=== PATIENT | female | born 1975 ===

== ENCOUNTER 2018-09-12 19:18 | Emergency (ER) | payer MEDICAID ==
[2018-09-12 19:26] VITALS: BP 127/82; PULSE 77; RESP 16; TEMP 98.1; O2SAT 99
--- NOTE | 2018-09-12 19:32 | C.PDOC ---
History Of Present Illness 42 y/o female presents to the ED complaining of right ankle pain, left shoulder pain, and left knee pain s/p fall. States she tripped and fell onto her left side. No head injury or LOC. Otherwise patient denies any numbness, tingling, focal weakness, or other injury. Time Seen by Provider: 09/12/18 19:28 Chief Complaint (Nursing): Lower Extremity Problem/Injury History Per: Patient History/Exam Limitations: no limitations Onset/Duration Of Symptoms: Hrs Current Symptoms Are (Timing): Still Present Past Medical History Reviewed: Historical Data, Nursing Documentation, Vital Signs Vital Signs: Last Vital Signs Temp 98.1 F 09/12/18 19:24 Pulse 77 09/12/18 19:24 Resp 16 09/12/18 19:24 BP 127/82 09/12/18 19:24 Pulse Ox 99 09/12/18 19:24 - Medical History PMH: No Chronic Diseases Family History: States: No Known Family Hx - Social History Hx Tobacco Use: No Hx Alcohol Use: No Hx Substance Use: No - Immunization History Hx Tetanus Toxoid Vaccination: No Hx Influenza Vaccination: No Hx Pneumococcal Vaccination: No Review Of Systems Constitutional: Negative for: Other (head injury) Eyes: Negative for: Vision Change Musculoskeletal: Positive for: Shoulder Pain (left), Leg Pain (left knee), Foot Pain (right ankle) Skin: Negative for: Rash, Bruising Neurological: Negative for: Weakness, Numbness, Incoordination Physical Exam - Physical Exam Appears: Non-toxic, No Acute Distress Skin: Normal Color, Warm, Dry Head: Atraumatic, Normacephalic Eye(s): bilateral: Normal Inspection, PERRL, EOMI Oral Mucosa: Moist Neck: Normal ROM, Supple Extremity: Normal ROM (with full ROM of the left lower extremity, left shoulder, and right lower extremity), Tenderness (Right ankle with mild tenderness to the medial and lateral malleolus; right hip and knee non-tender; Left shoulder is minimally tender to anterior aspect; no tenderness to left knee), No Deformity, Swelling (to the right ankle), Other (abrasion to the left knee, no active bleeding) Pulses: Left Dorsalis Pedis: Normal, Right Dorsalis Pedis: Normal Neurological/Psych: Oriented x3, Normal Speech ED Course And Treatment O2 Sat by Pulse Oximetry: 99 (RA) Pulse Ox Interpretation: Normal - Other Rad Right ankle x-ray X-Ray: Read By Radiologist Interpretation: Name:KARY SMITH Exam Date:Sep 12, 2018 7:57:32 PM EST. Modality Type:CR\SD\MD. Description:CR - ANKLE 3 VIEWS. Gender:F Laterality:Right. :75 Referring Physician:Fadumo Dinero). EXAM: CR right Ankle, 3 View. CLINICAL HISTORY: Fall. COMPARISON: None provided. FINDINGS: BONES: No fracture. JOINTS: The joint spaces appear within normal limits. No dislocation. The ankle mortise is intact. SOFT TISSUES: Significant soft tissue swelling overlying the lateral malleolus. IMPRESSION: 1. Significant soft tissue swelling overlying the lateral malleolus. 2. No fracture Medical Decision Making Medical Decision Making: Impression: Right ankle pain s/p fall Initial Plan: --Right ankle x-ray --Toradol 60 mg IM Preliminary reading by [facility] is negative for fracture. Results discussed with patient. KRISTEN wrap bandage provided. Patient is stable for discharge home. Advised to follow up with orthopedist for persistent symptoms. Disposition - Disposition Disposition: HOME/ ROUTINE Disposition Time: 21:39 Condition: STABLE Additional Instructions: SARAH Mitch STONE, thank you for letting us take care of you today. Your provider was Kelley Chang MD and you were treated for SWOLLEN ANKLE. The emergency medical care you received today was directed at your acute symptoms. If you were prescribed any medication, please fill it and take as directed. It may take several days for your symptoms to resolve. Return to the Emergency Department if your symptoms worsen, do not improve, or if you have any other problems. Please contact your doctor or call one of the physicians/clinics you have been referred to that are listed on the Patient Visit Information form that is included in your discharge packet. Bring any paperwork you were given at discharge with you along with any medications you are taking to your follow up visit. Our treatment cannot replace ongoing medical care by a primary care provider outside of the emergency department. Thank you for allowing the [facility] team to be part of your care today. If you had an X-Ray or CT scan: A Radiologist will review the ED reading if any change in treatment is needed we will contact you. If you had a blood, urine, or wound culture: It will take several days for the results, if any change in treatment is needed we will contact you. If you had an STI test: It will take 48 hours for the results. Please call after 1 week if you have not heard back. Instructions: Ankle Sprain (DC) Forms: [employer] ([place]) - Clinical Impression Clinical Impression: Right ankle sprain, Abrasion of knee, left - Scribe Statement The provider has reviewed the documentation as recorded by the Cruz Henriquez Provider Attestation: All medical record entries made by the Cruz were at my direction and personally dictated by me. I have reviewed the chart and agree that the record accurately reflects my personal performance of the history, physical exam, medical decision making, and the department course for this patient. I have also personally directed, reviewed, and agree with the discharge instructions and disposition.
--- NOTE | 2018-09-13 09:33 | RAD ---
Date of service: 09/12/2018 PROCEDURE: Right Ankle Radiographs. HISTORY: injury COMPARISON: None available. FINDINGS: BONES: Normal. No fracture. Very small posterior and tiny plantar calcaneal surface enthesophyte. JOINTS: Normal. No osteoarthritis. Ankle mortise maintained. Talar dome intact SOFT TISSUES: Moderate soft tissue swelling over the lateral malleolus and minimal medial soft tissue swelling. Other Findings None. IMPRESSION: No evidence of acute displaced fracture nor dislocation.. Moderate lateral and minimal medial soft tissue swelling.
== END 2018-09-12 21:51 | disposition home or self-care (01) ==
LOC: C.ER 19:18
DX: S93.401A Sprain of unspecified ligament of right ankle, initial encounter (principal); S80.212A Abrasion, left knee, initial encounter; W01.0XXA Fall on same level from slipping, tripping and stumbling without subsequent striking against object, initial encounter
CPT/HCPCS: 73610; 96372; 99285; J1885